=== PATIENT | female | born 2000 | race Caucasian/White ===

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

== ENCOUNTER 2019-04-14 16:39 | Emergency (ER) | payer MEDICAID ==
[2019-04-14 16:55] VITALS: BP 139/44; PULSE 92
[2019-04-14] MEDS ORDERED: Ketorolac 60 MG/2 ML SDV IM ONE (17:08)
--- NOTE | 2019-04-14 17:12 | EDM.PDOC ---
ED HPI GENERAL MEDICAL PROBLEM - General Chief Complaint: Upper Extremity Injury/Pain Stated Complaint: LEFT WRIST PAIN/SURGERY FEB 14 Time Seen by Provider: 04/14/19 17:01 Source of Information: Reports: Patient, Family, RN Notes Reviewed History Limitations: Reports: No Limitations - History of Present Illness INITIAL COMMENTS - FREE TEXT/NARRATIVE: 19-year-old female presents emergency department today complaint of left wrist pain, she recently had a ganglion cyst removed on the left wrist and now is experiencing pain over the last 4 days she denies any trauma or repetitive motion injury she has been using naproxen 500 twice a day with minimal relief she has not been able to follow-up with her surgeon Left Wrist Pain Score (Numeric/FACES): 9 - Related Data Allergies Allergy/AdvReac Type Severity Reaction Status Date / Time amoxicillin Allergy Hives Verified 04/14/19 16:53 amoxicillin trihydrate Allergy Hives Verified 04/14/19 16:53 [From Augmentin] cefprozil [From Cefzil] Allergy Hives Verified 04/14/19 16:53 latex Allergy Rash Verified 04/14/19 16:53 Penicillins Allergy Hives Verified 04/14/19 16:53 potassium clavulanate Allergy Hives Verified 04/14/19 16:53 [From Augmentin] cephalexin AdvReac Nausea and Verified 04/14/19 16:53 Vomiting Home Meds: Home Meds Omeprazole 40 mg PO DAILY 03/05/16 [History] Albuterol Sulfate [Proair Hfa] 2 puff IH Q4H PRN 02/26/18 [History] Triamcinolone Acetonide [Kenalog 0.1% Crm] 1 applic TOP TID PRN 02/26/18 [ History] Levonorgestrel-Ethin Estradiol [Aviane-28 Tablet] 1 tab PO DAILY 06/09/18 [ History] Naproxen 500 mg PO BID 04/14/19 [History] Past Medical History HEENT History: Reports: Impaired Vision Respiratory History: Reports: Pneumonia, Recurrent Gastrointestinal History: Reports: Cholelithiasis, GERD Genitourinary History: Reports: Pyelonephritis Neurological History: Reports: Concussion, Migraines Psychiatric History: Reports: Anxiety, Depression, Suicide Attempt - Infectious Disease History Infectious Disease History: Reports: Mononucleosis - Past Surgical History HEENT Surgical History: Reports: Adenoidectomy, Oral Surgery, Tonsillectomy GI Surgical History: Reports: Cholecystectomy, EGD, Other (See Below) Other GI Surgeries/Procedures: cheryl Feb 27 2018 Musculoskeletal Surgical History: Reports: Other (See Below) Other Musculoskeletal Surgeries/Procedures:: cyst removal from left wrist Social & Family History - Family History Family Medical History: Noncontributory - Caffeine Use Caffeine Use: Reports: Soda Other Caffeine Use: 28 ounces/daily - Recreational Drug Use Recreational Drug Use: No Review of Systems - Review of Systems Review Of Systems: See Below Constitutional: Reports: No Symptoms Musculoskeletal: Reports: Joint Pain (Right wrist pain) ED EXAM, GENERAL - Physical Exam Exam: See Below Free Text/Narrative:: Examination of the left surgical wound is clean dry and intact she is tender to palpation over the wound site wrist I don't appreciate any erythema there is no edema she has limited range of motion of the wrist secondary to pain Exam Limited By: No Limitations General Appearance: Alert, WD/WN, No Apparent Distress Course - Vital Signs Last Recorded V/S: Last Vital Signs Temp 98.2 F 04/14/19 16:59 Pulse 92 04/14/19 16:59 Resp 16 04/14/19 16:59 BP 139/44 L 04/14/19 16:59 Pulse Ox 100 04/14/19 16:59 - Orders/Labs/Meds Orders: Active Orders 24 hr Category Date Time Status Ketorolac [Toradol] Med 04/14/19 17:08 Once 60 mg IM ONETIME ONE Departure - Departure Time of Disposition: 17:11 Disposition: Home, Self-Care 01 Condition: Fair Clinical Impression: Left wrist pain - Discharge Information Referrals: Sophia Hunt DO [Primary Care Provider] - Additional Instructions: Recommend ibuprofen 600 mg by mouth 4 times a day when necessary in combination with Tylenol, please follow-up with your surgeon for further evaluation - My Orders Last 24 Hours: My Active Orders 04/14/19 17:08 Ketorolac [Toradol] 60 mg IM ONETIME ONE - Assessment/Plan Last 24 Hours: My Active Orders 04/14/19 17:08 Ketorolac [Toradol] 60 mg IM ONETIME ONE Plan: Assessment Acuity = acute Site and laterality = left wrist pain Etiology = unknown Manifestations = none Location of injury = Home Lab values = none Plan She is provided Toradol injection in the ED which she had some pain relief she is given changed ibuprofen 600 mg by mouth 4 times a day when necessary in combination with Tylenol for pain control and then follow up with her surgeon This note was dictated using [employer] voice recognition software please call with any questions on syntax or grammar.
== END 2019-04-14 17:44 | disposition home or self-care (01) ==
LOC: JP.ED 16:39
DX: M25.532 Pain in left wrist (principal); K21.9 Gastro-esophageal reflux disease without esophagitis; Z88.1 Allergy status to other antibiotic agents; Z88.0 Allergy status to penicillin; Z91.040 Latex allergy status; Z88.8 Allergy status to other drugs, medicaments and biological substances
CPT/HCPCS: 96372; 99283-25; J1885

== ENCOUNTER 2019-05-13 18:24 | Emergency (ER) | payer MEDICAID ==
[2019-05-13 18:57] VITALS: BP 126/73; PULSE 90
[2019-05-13] MEDS ORDERED: Ketorolac 60 MG/2 ML SDV IM ONE (19:14)
--- NOTE | 2019-05-13 19:23 | EDM.PDOC ---
ED HPI GENERAL MEDICAL PROBLEM - General Chief Complaint: Abdominal Pain Stated Complaint: LOWER ABD PAIN Time Seen by Provider: 05/13/19 19:05 Source of Information: Reports: Patient, Old Records, RN History Limitations: Reports: No Limitations - History of Present Illness INITIAL COMMENTS - FREE TEXT/NARRATIVE: 19 yo female was seen in the [facility] today by INSULATOR APPRENTICE for presumed endometriosis. After his exam she has been experiencing more pain not relieved with OTC agents. No fever or chills. No dysuria. No vaginal discharge. Pain is in pelvis. Bowel habits normal. Has an ultrasound pending, laparoscopy has been discussed. Is on oral contraceptives. Onset: Today (worse today after exam. ) Onset Date: 05/13/19 Duration: Hour(s):, Constant Location: Reports: Pelvis Quality: Reports: Ache Severity: Moderate Improves with: Reports: Medication Worsens with: Reports: Other (see HPI) Context: Reports: Other (see HPI) Associated Symptoms: Reports: No Other Symptoms Treatments TRANSPORTATION AID: Reports: Acetaminophen, NSAIDS - Related Data Allergies Allergy/AdvReac Type Severity Reaction Status Date / Time amoxicillin Allergy Hives Verified 04/14/19 16:53 amoxicillin trihydrate Allergy Hives Verified 04/14/19 16:53 [From Augmentin] cefprozil [From Cefzil] Allergy Hives Verified 04/14/19 16:53 latex Allergy Rash Verified 04/14/19 16:53 Penicillins Allergy Hives Verified 04/14/19 16:53 potassium clavulanate Allergy Hives Verified 04/14/19 16:53 [From Augmentin] cephalexin AdvReac Nausea and Verified 04/14/19 16:53 Vomiting Home Meds: Home Meds Omeprazole 40 mg PO DAILY 03/05/16 [History] Albuterol Sulfate [Proair Hfa] 2 puff IH Q4H PRN 02/26/18 [History] Triamcinolone Acetonide [Kenalog 0.1% Crm] 1 applic TOP TID PRN 02/26/18 [ History] Desogestrel-Ethinyl Estradiol [Isibloom 28 Day Tablet] 1 tab PO DAILY 05/13/19 [ History] FLUoxetine HCl [Fluoxetine HCl] 40 mg PO DAILY 05/13/19 [History] Past Medical History HEENT History: Reports: Impaired Vision Respiratory History: Reports: Pneumonia, Recurrent Gastrointestinal History: Reports: Cholelithiasis, GERD Genitourinary History: Reports: Pyelonephritis Neurological History: Reports: Concussion, Migraines Psychiatric History: Reports: Anxiety, Depression, Suicide Attempt - Infectious Disease History Infectious Disease History: Reports: Mononucleosis - Past Surgical History HEENT Surgical History: Reports: Adenoidectomy, Oral Surgery, Tonsillectomy GI Surgical History: Reports: Cholecystectomy, EGD, Other (See Below) Other GI Surgeries/Procedures: cheryl Feb 27 2018 Musculoskeletal Surgical History: Reports: Other (See Below) Other Musculoskeletal Surgeries/Procedures:: cyst removal from left wrist Social & Family History - Family History Family Medical History: Noncontributory - Caffeine Use Caffeine Use: Reports: Coffee, Soda Other Caffeine Use: 28 ounces/daily - Recreational Drug Use Recreational Drug Use: No ED ROS GENERAL - Review of Systems Review Of Systems: Comprehensive ROS is negative, except as noted in HPI. Constitutional: Reports: No Symptoms : Reports: Pain (pelvis) ED EXAM, GI/ABD - Physical Exam Exam: See Below Exam Limited By: No Limitations General Appearance: Alert, WD/WN, No Apparent Distress Eyes: Bilateral: Normal Appearance Ears: Normal External Exam, Normal Canal, Hearing Grossly Normal Nose: Normal Inspection, No Blood Throat/Mouth: Normal Inspection, Normal Lips, Normal Voice, No Airway Compromise Head: Atraumatic, Normocephalic Neck: Normal Inspection Respiratory/Chest: No Respiratory Distress, Lungs Clear, Normal Breath Sounds, No Accessory Muscle Use Cardiovascular: Regular Rate, Rhythm, No Edema GI/Abdominal Exam: Normal Bowel Sounds, Soft, No Distention, Tender (pelvis only ) Back Exam: Normal Inspection. No: CVA Tenderness (R), CVA Tenderness (L) Extremities: Normal Inspection, Normal Range of Motion, Non-Tender, No Pedal Edema Neurological: Alert, Oriented, CN II-XII Intact, Normal Cognition, No Motor/ Sensory Deficits Psychiatric: Normal Affect, Normal Mood Skin Exam: Warm, Dry, Intact, Normal Color, No Rash Course - Vital Signs Last Recorded V/S: Last Vital Signs Temp 36.9 C 05/13/19 18:58 Pulse 90 05/13/19 18:58 Resp 16 05/13/19 18:58 BP 126/73 05/13/19 18:58 Pulse Ox 100 05/13/19 18:58 - Orders/Labs/Meds Meds: Medications Discontinued Medications Generic Name Dose Route Start Last Admin Trade Name Patrick PRN Reason Stop Dose Admin Ketorolac Tromethamine 60 mg 05/13/19 19:14 Toradol IM 05/13/19 19:15 ONETIME ONE Departure - Departure Time of Disposition: 19:24 Disposition: Home, Self-Care 01 Condition: Good Clinical Impression: Endometriosis - Discharge Information *PRESCRIPTION DRUG MONITORING PROGRAM REVIEWED*: No *COPY OF PRESCRIPTION DRUG MONITORING REPORT IN PATIENT BROCK: No Instructions: Endometriosis Referrals: PCP,None [Primary Care Provider] - Additional Instructions: Continue acetaminophen as needed. After 6 hrs you may resume ibuprofen or Aleve for pain relief. Discuss ongoing pain issues with your doctor tomorrow if not feeling a lot better.
== END 2019-05-13 19:54 | disposition home or self-care (01) ==
LOC: JP.ED 18:24
DX: N80.9 Endometriosis, unspecified (principal); K21.9 Gastro-esophageal reflux disease without esophagitis; F41.9 Anxiety disorder, unspecified; F32.9 Major depressive disorder, single episode, unspecified; Z88.0 Allergy status to penicillin; Z88.1 Allergy status to other antibiotic agents; Z88.8 Allergy status to other drugs, medicaments and biological substances; Z91.040 Latex allergy status; Z79.899 Other long term (current) drug therapy
CPT/HCPCS: 96372; 99283-25; J1885

== ENCOUNTER 2021-03-14 03:16 | Emergency (ER) | payer MEDICAID ==
[2021-03-14 03:38] VITALS: BP 136/74
[2021-03-14] MEDS ORDERED: HYDROmorphone 1 MG/ML Syringe IM ONE (03:57)
--- NOTE | 2021-03-14 04:02 | EDM.PDOC ---
<OfficerTucker - Last Filed: 03/14/21 07:53> ED HPI GENERAL MEDICAL PROBLEM - General Chief Complaint: Abdominal Pain Stated Complaint: ABD PAIN Time Seen by Provider: 03/14/21 03:40 - Related Data Allergies Allergy/AdvReac Type Severity Reaction Status Date / Time amoxicillin Allergy Hives Verified 03/14/21 03:34 amoxicillin trihydrate Allergy Hives Verified 03/14/21 03:34 [From Augmentin] cefprozil [From Cefzil] Allergy Hives Verified 03/14/21 03:34 latex Allergy Rash Verified 03/14/21 03:34 Penicillins Allergy Hives Verified 03/14/21 03:34 potassium clavulanate Allergy Hives Verified 03/14/21 03:34 [From Augmentin] cephalexin AdvReac Nausea and Verified 03/14/21 03:34 Vomiting Home Meds: Home Meds Omeprazole 40 mg PO DAILY 03/05/16 [History] Albuterol Sulfate [Proair Hfa] 2 puff IH Q4H PRN 02/26/18 [History] Triamcinolone Acetonide [Kenalog 0.1% Crm] 1 applic TOP TID PRN 02/26/18 [History] Desogestrel-Ethinyl Estradiol [Isibloom 28 Day Tablet] 1 tab PO DAILY 05/13/19 [History] Ketorolac [Toradol] 10 mg PO TID PRN #20 tab 03/14/21 [Rx] Departure - Departure Time of Disposition: 07:55 Disposition: Home, Self-Care 01 Clinical Impression: COVID-19 - Discharge Information Prescriptions: Ketorolac [Toradol] 10 mg PO TID PRN #20 tab PRN Reason: Pain Instructions: 10 Things You Can Do to Manage Your COVID-19 Symptoms at Home - [facility] (12/24/2020), COVID-19: How to Protect Yourself and Others - CDC, COVID-19: Quarantine vs. Isolation - CDC (05/27/2020) Referrals: Sophia Hunt DO [Primary Care Provider] - Forms: ED Department Discharge Additional Instructions: Tylenol and Motrin as needed for symptomatic care, no medication of Toradol has been faxed to [facility], please contact your primary care provider if you are interested in monoclonal antibody therapy treatment, please followup with your primary care provider in 5-7 days if not better, please call return to the emergency department with worsening of symptoms. - Assessment/Plan Plan: Assessment Acuity = acute Site and laterality = viral syndrome Etiology = COVID-19 Manifestations = fever Location of injury = Home Lab values = CBC, CMP, urinalysis unremarkable Covid was positive CT scan of the abdomen shows no acute process she does have a 2.2 cm ovarian cyst on the left side Plan She had good improvement with Toradol provided, prescription written for Toradol 10 mg 1 tab p.o. 3 times daily as needed 1220 I did offer monoclonal antibody treatment she declined This note was dictated using [employer] voice recognition software please call with any questions on syntax or grammar. <Nicholas William - Last Filed: 03/14/21 16:51> ED HPI GENERAL MEDICAL PROBLEM - General Source of Information: Reports: Patient, Family History Limitations: Reports: No Limitations - History of Present Illness INITIAL COMMENTS - FREE TEXT/NARRATIVE: 21-year-old female with worsening lower abdominal pain for the past 3 days. She is developed a fever as well. The pain is become very intense with peritoneal irritation in the left lower quadrant. She has no other symptoms such as dysuria, urinary frequency, nausea or vomiting, diarrhea, back pain, shortness of breath or cough. She took a test 1 week ago and it was negative, she initially thought she was getting her period. She arrives with a temperature of 103.3 and tachycardia. Onset: Gradual Duration: Day(s): (Symptoms for 3 days) Location: Reports: Abdomen (Left lower quadrant) Quality: Reports: Sharp, Stabbing Worsens with: Reports: Movement Associated Symptoms: Reports: Fever/Chills, Malaise. Denies: Nausea/Vomiting, Shortness of Breath, Weakness Right Abdominal Pain Score (Numeric/FACES): 7 Past Medical History HEENT History: Reports: Impaired Vision Respiratory History: Reports: Pneumonia, Recurrent Gastrointestinal History: Reports: Cholelithiasis, GERD Genitourinary History: Reports: Pyelonephritis Neurological History: Reports: Concussion, Migraines Psychiatric History: Reports: Anxiety, Depression, Suicide Attempt - Infectious Disease History Infectious Disease History: Reports: Mononucleosis - Past Surgical History HEENT Surgical History: Reports: Adenoidectomy, Oral Surgery, Tonsillectomy Respiratory Surgical History: Reports: None GI Surgical History: Reports: Cholecystectomy, EGD, Other (See Below) Other GI Surgeries/Procedures: cheryl Feb 27 2018 Female Surgical History: Reports: None Neurological Surgical History: Reports: None Musculoskeletal Surgical History: Reports: Other (See Below) Other Musculoskeletal Surgeries/Procedures:: cyst removal from left wrist Social & Family History - Family History Family Medical History: No Pertinent Family History - Tobacco Use Tobacco Use Status *Q: Current Every Day Tobacco User Years of Tobacco use: 3 Packs/Tins Daily: 1 - Caffeine Use Caffeine Use: Reports: Coffee Other Caffeine Use: 28 ounces/daily - Recreational Drug Use Recreational Drug Use: No ED ROS GENERAL - Review of Systems Review Of Systems: See Below Constitutional: Reports: Fever, Chills, Malaise, Decreased Appetite HEENT: Reports: No Symptoms Respiratory: Reports: No Symptoms Cardiovascular: Reports: No Symptoms GI/Abdominal: Reports: Abdominal Pain. Denies: Diarrhea, Nausea, Vomiting : Denies: Dysuria, Flank Pain, Frequency, Urgency Musculoskeletal: Reports: No Symptoms Skin: Reports: No Symptoms Neurological: Reports: No Symptoms ED EXAM, GI/ABD - Physical Exam Exam: See Below Exam Limited By: No Limitations General Appearance: Alert, No Apparent Distress, Other (Uncomfortable but not distressed) Eyes: Bilateral: Normal Appearance (No jaundice, good hydration) Head: Atraumatic Respiratory/Chest: No Respiratory Distress, Lungs Clear Cardiovascular: Regular Rate, Rhythm, Tachycardia GI/Abdominal Exam: Soft, Tender (Very tender in the left lower quadrant with guarding and rebound) Extremities: Normal Inspection. No: Pedal Edema Neurological: Alert, Oriented Psychiatric: Anxious Skin Exam: Warm, Dry Course - Vital Signs Last Recorded V/S: Last Vital Signs Temp 101.7 F H 03/14/21 04:37 Pulse 134 H 03/14/21 04:37 Resp 18 03/14/21 03:37 BP 136/74 03/14/21 03:37 Pulse Ox 96 03/14/21 03:37 - Orders/Labs/Meds Labs: Laboratory Tests 03/14/21 03/14/21 03/14/21 Range/Units 03:56 03:57 04:10 WBC 9.1 (4.5-11.0) K/uL RBC 4.61 (3.30-5.50) M/uL Hgb 12.4 (12.0-15.0) g/dL Hct 38.8 (36.0-48.0) % MCV 84 (80-98) fL MCH 27 (27-31) pg MCHC 32 (32-36) % Plt Count 208 (150-400) K/uL Neut % (Auto) 80.5 H (36-66) % Lymph % (Auto) 8.3 L (24-44) % [place] % (Auto) 10.5 H (2-6) % Eos % (Auto) 0.6 L (2-4) % Baso % (Auto) 0.1 (0-1) % Sodium (140-148) mmol/L Potassium (3.6-5.2) mmol/L Chloride (100-108) mmol/L Carbon Dioxide (21-32) mmol/L Anion Gap (5.0-14.0) mmol/L BUN (7-18) mg/dL Creatinine (0.6-1.0) mg/dL Est Cr Clr Drug Dosing mL/min Estimated GFR (MDRD) (>60) Glucose (74-106) mg/dL Calcium (8.5-10.1) mg/dL Total Bilirubin (0.2-1.0) mg/dL AST (15-37) U/L ALT (12-78) U/L Alkaline Phosphatase (46-116) U/L Total Protein (6.4-8.2) g/dL Albumin (3.4-5.0) g/dL Globulin (2.3-3.5) g/dL Albumin/Globulin Ratio (1.2-2.2) Urine Color Yellow (YELLOW) Urine Appearance Cloudy A (CLEAR) Urine pH 6.0 (5.0-8.0) Ur Specific [place] >= 1.030 (1.008-1.030) Urine Protein Negative (NEGATIVE) mg/dL Urine Glucose (UA) Negative (NEGATIVE) mg/dL Urine Ketones Negative (NEGATIVE) mg/dL Urine Occult Blood Moderate H (NEGATIVE) Urine Nitrite Negative (NEGATIVE) Urine Bilirubin Negative (NEGATIVE) Urine Urobilinogen 0.2 (0.2-1.0) EU/dL Ur Leukocyte Esterase Trace H (NEGATIVE) Urine RBC 0-5 (0-5) Urine WBC 0-5 (0-5) Ur Epithelial Cells Few Amorphous Sediment Few Urine Bacteria Many Urine Mucus Not seen Urine HCG, Qual Negative SARS-CoV-2 RNA (AROLDO) (NEGATIVE) 03/14/21 03/14/21 Range/Units 04:10 04:10 WBC (4.5-11.0) K/uL RBC (3.30-5.50) M/uL Hgb (12.0-15.0) g/dL Hct (36.0-48.0) % MCV (80-98) fL MCH (27-31) pg MCHC (32-36) % Plt Count (150-400) K/uL Neut % (Auto) (36-66) % Lymph % (Auto) (24-44) % [place] % (Auto) (2-6) % Eos % (Auto) (2-4) % Baso % (Auto) (0-1) % Sodium 141 (140-148) mmol/L Potassium 3.9 (3.6-5.2) mmol/L Chloride 105 (100-108) mmol/L Carbon Dioxide 26 (21-32) mmol/L Anion Gap 10.4 (5.0-14.0) mmol/L BUN 8 (7-18) mg/dL Creatinine 0.7 (0.6-1.0) mg/dL Est Cr Clr Drug Dosing 99.70 mL/min Estimated GFR (MDRD) > 60 (>60) Glucose 96 (74-106) mg/dL Calcium 8.9 (8.5-10.1) mg/dL Total Bilirubin 0.1 L (0.2-1.0) mg/dL AST 20 (15-37) U/L ALT 39 (12-78) U/L Alkaline Phosphatase 99 (46-116) U/L Total Protein 6.7 (6.4-8.2) g/dL Albumin 3.8 (3.4-5.0) g/dL Globulin 2.9 (2.3-3.5) g/dL Albumin/Globulin Ratio 1.3 (1.2-2.2) Urine Color (YELLOW) Urine Appearance (CLEAR) Urine pH (5.0-8.0) Ur Specific [place] (1.008-1.030) Urine Protein (NEGATIVE) mg/dL Urine Glucose (UA) (NEGATIVE) mg/dL Urine Ketones (NEGATIVE) mg/dL Urine Occult Blood (NEGATIVE) Urine Nitrite (NEGATIVE) Urine Bilirubin (NEGATIVE) Urine Urobilinogen (0.2-1.0) EU/dL Ur Leukocyte Esterase (NEGATIVE) Urine RBC (0-5) Urine WBC (0-5) Ur Epithelial Cells Amorphous Sediment Urine Bacteria Urine Mucus Urine HCG, Qual SARS-CoV-2 RNA (AROLDO) Positive H (NEGATIVE) Meds: Medications Discontinued Medications Generic Name Dose Route Start Last Admin Trade Name Freq PRN Reason Stop Dose Admin Hydromorphone HCl 1 mg 03/14/21 03:57 03/14/21 04:02 Hydromorphone 1 Mg/Ml Syringe IM 03/14/21 03:58 1 mg ONETIME ONE Administration Sodium Chloride 1,000 mls @ 1,000 mls/hr 03/14/21 04:30 03/14/21 04:26 Normal Saline IV 1,000 mls/hr ASDIRECTED ARTEMIO Administration Sodium Chloride 70 mls @ 3 mls/sec 03/14/21 05:25 Normal Saline IV 03/14/21 05:26 ASDIRECTED STA Sodium Chloride 70 mls @ 3 mls/sec 03/14/21 05:42 03/14/21 05:57 Normal Saline IV 03/14/21 05:43 3 mls/sec ASDIRECTED STA Administration Iopamidol 100 ml 03/14/21 05:25 03/14/21 05:40 Iopamidol 612 Mg/Ml 100 Ml Bottle IV 03/14/21 05:26 Not Given . DIRECTED STA Iopamidol 100 ml 03/14/21 05:42 03/14/21 05:57 Iopamidol 612 Mg/Ml 100 Ml Bottle IV 03/14/21 05:43 100 ml . DIRECTED STA Administration Ketorolac Tromethamine 30 mg 03/14/21 06:22 03/14/21 06:41 Ketorolac 30 Mg/Ml Sdv IVPUSH 03/14/21 06:23 30 mg ONETIME ONE Administration Ondansetron HCl 4 mg 03/14/21 04:28 03/14/21 04:35 Ondansetron 4 Mg/2 Ml Sdv IVPUSH 03/14/21 04:29 4 mg ONETIME ONE Administration - Re-Assessments/Exams Free Text/Narrative Re-Assessment/Exam: 03/14/21 04:01 Patient was given 1 mg of IM Dilaudid, CBC, CMP, UA and urine were obtained. A Covid was also obtained. 03/14/21 05:10 White count and hemoglobin returned normal, urine is generally clear other than some bacteria. Covid did return positive, and IV enhanced abdomen and pelvis contrast will be obtained. She does have a history of irritable bowel so this may just be a Covid presentation. 03/14/21 05:48 CMP is almost completely normal. Waiting on CT scan. Sepsis Event Note (ED) - Evaluation Sepsis Screening Result: Possible Sepsis Risk
[2021-03-14] MEDS ORDERED: Ondansetron 4 MG/2 ML SDV IVPUSH ONE (04:28)
[2021-03-14] MEDS ORDERED: Sodium Chloride 0.9% 1,000 ML IV SCH (04:30)
[2021-03-14 04:37] VITALS: PULSE 134
[2021-03-14] MEDS ORDERED: Iopamidol 612 MG/ML 100 ML Bottle IV STA ×2 (05:25→05:42)
[2021-03-14] MEDS ORDERED: Ketorolac 30 MG/ML SDV IVPUSH ONE (06:22)
--- NOTE | 2021-03-14 07:33 | CRLCT ---
For Patients: As a result of the Century Cures Act, medical imaging exams and procedure reports are released immediately into your electronic medical record. You may view this report before your referring provider. If you have questions, please contact your health care provider. INDICATION: Abdominal pain. TECHNIQUE: CT of the abdomen and pelvis with 100 cc Isovue 300 IV contrast. Coronal and sagittal reconstructions. COMPARISON: CT of the abdomen and pelvis 12/19/2017. FINDINGS: Moderate diffuse hepatic steatosis. Interval cholecystectomy. No biliary dilation. The spleen, pancreas, and adrenal glands are negative. Hepatic and portal veins are patent. Symmetric enhancement of the kidneys. No hydronephrosis or ureteral dilation. No obstructing urinary calculi identified. The bladder and uterus are normal in appearance. Nonspecific air within the vagina. The ovaries are both mildly prominent in size, greater on the left. There is a 2.2 cm rim enhancing cystic lesion in the left ovary (series 2, image 173). No bowel dilation. Negative appendix. No intraperitoneal free air or fluid. Tiny fat containing umbilical hernia. No lymphadenopathy. New small sclerotic lesion in the posterior right iliac bone most likely represents a bone island. The lung bases are clear. IMPRESSION: 1. No acute findings in the abdomen or pelvis. 2. Moderate diffuse hepatic steatosis. 3. 2.2 cm rim enhancing cystic lesion in the left ovary most likely represents a physiologic cyst or corpus luteum. The ovaries are both mildly prominent in size. Please note that all CT scans at this facility use dose modulation, iterative reconstruction, and/or weight-based dosing when appropriate to reduce radiation dose to as low as reasonably achievable. Dictated by Kristin Erazo MD @ 03/14/2021 7:31:16 AM (Electronically Signed)
== END 2021-03-14 08:13 | disposition home or self-care (01) ==
LOC: JP.ED 03:16
DX: U07.1 COVID-19 (principal); K21.9 Gastro-esophageal reflux disease without esophagitis; Z72.0 Tobacco use; Z88.0 Allergy status to penicillin; Z88.1 Allergy status to other antibiotic agents; Z91.040 Latex allergy status
CPT/HCPCS: 36415; 74177; 80053; 81001; 81025; 85025; 87635; 96372; 96374; 96375; 99284; J1170; J1885; J2405; J7030; Q9967; U0002

== ENCOUNTER 2022-03-09 17:44 | Emergency (ER) | payer MEDICAID ==
[2022-03-09 20:21] LABS: ESTIMATED GFR 125 mL/min (>60)
[2022-03-09 21:01] VITALS: BP 122/56; PULSE 85
[2022-03-21] MEDS ORDERED: Acetaminophen/HYDROcodone 325-10 MG Tab ONE (00:34)
== END 2022-03-09 20:34 | disposition home or self-care (01) ==
LOC: JP.ED 17:44
DX: E28.2 Polycystic ovarian syndrome (principal); N85.8 Other specified noninflammatory disorders of uterus; K21.9 Gastro-esophageal reflux disease without esophagitis; F41.9 Anxiety disorder, unspecified; F32.A Depression, unspecified; Z79.899 Other long term (current) drug therapy; Z91.040 Latex allergy status; Z88.0 Allergy status to penicillin; Z88.1 Allergy status to other antibiotic agents; Z88.8 Allergy status to other drugs, medicaments and biological substances
CPT/HCPCS: 36415; 76830; 76856; 81001; 82565; 84703; 85025; 86140; 99284

== ENCOUNTER 2022-03-20 22:47 | Emergency (ER) | payer MEDICAID ==
[2022-03-21] MEDS ORDERED: Acetaminophen/HYDROcodone 325-10 MG Tab ONE (00:30)
== END 2022-03-21 00:42 | disposition home or self-care (01) ==
LOC: JP.ED 22:47
DX: R10.2 Pelvic and perineal pain (principal); E28.2 Polycystic ovarian syndrome; Z88.0 Allergy status to penicillin; Z91.040 Latex allergy status; Z88.5 Allergy status to narcotic agent
CPT/HCPCS: 99283; A9270